=== PATIENT | female | born 1990 | race Caucasian/White ===

== ENCOUNTER 2021-11-10 20:00 | Emergency (ER) | payer OTHER, SELFPAY ==
--- NOTE | ~2021-11-10 | XR_ITS ---
EXAMINATION: XR chest 1V portable Exam Date/Time: 11/10/2021 20:45 CDT CLINICAL HISTORY: SOB with weakness Comparison: None available. RESULT: Lines, tubes, and devices: None. Lungs and pleura: Clear. Cardiomediastinal silhouette: Stable cardiomediastinal silhouette. Other: No acute osseous or upper abdominal finding. IMPRESSION: No acute cardiopulmonary process Reviewed, dictated and finalized at location K.
[2021-11-10 20:27] VITALS: BP 147/84; PULSE 98; RESP 20; TEMP 36.5; O2SAT 100
[2021-11-10 22:28] LABS: Basophils Absolute Auto 0.02 K/mm3 (0.00-0.10); Basophils Percent Auto 0.2 % (0.0-1.0); Eosinophils Absolute Auto 0.08 K/mm3 (0.02-0.50); Eosinophils Percent Auto 0.8 % (1.0-6.0); Hematocrit 34.9 % (35.0-49.0); Immature Granulocyte Absolute 0.04 K/mm3 (0.00-0.00); Immature Granulocyte Percent A 0.4 % (0.0-0.0); Lymphocytes Absolute Auto 1.78 K/mm3 (1.10-4.50); Lymphocytes Percent Auto 17.8 % (18.0-42.0); Mean Corpuscular HGB Conc 34.4 g/dL (32.0-36.0); Mean Corpuscular Hemoglobin 32.7 pg (27.0-31.0); Mean Corpuscular Volume 95.1 fL (78.0-102.0); Mean Platelet Volume 9.6 fl (9.2-11.8); Monocytes Absolute Auto 0.38 K/mm3 (0.10-0.90); Monocytes Percent Auto 3.8 % (2.0-11.0); Neutrophils Absolute Auto 7.7 K/mm3 (1.7-7.2); Platelet Count Result 304 K/mm3 (150-420); Red Blood Count 3.67 M/mm3 (4.20-5.40); Red Cell Distribution Width 11.7 % (11.6-14.4)
[2021-11-10 22:49] LABS: Lactic Acid Reflex 0.4 mmol/L (0.4-2.0)
[2021-11-10 22:55] LABS: Alanine Aminotransferase 30 U/L (14-59); Albumin Level 3.6 g/dL (3.4-5.0); Alkaline Phosphatase 46 U/L (46-116); Anion Gap 10 mmol/L (8-16); Aspartate Amino Transferase 12 U/L (15-37); Bilirubin,Total 0.3 mg/dL (0.00-1.00); Blood Urea Nitrogen 9 mg/dL (7-18); Calcium 8.5 mg/dL (8.5-10.1); Carbon Dioxide 25 mmol/L (21-32); Chloride 105 mmol/L (98-108); Estimated CRCL calculation 152 ml/min; Estimated Glomerular Filt Rate > 60; Glucose 110 mg/dL (70-99); Osmolality Calculated 289 mOsm/kg (285-295); Potassium 3.4 mmol/L (3.5-5.1); Sodium 140 mmol/L (136-145); Thyroid Stimulating Hormone 0.59 uIU/mL (0.36-3.74); Total Protein 6.6 g/dL (6.4-8.2)
[2021-11-10 23:04] LABS: Influenza A QL RT-PCR Negative (Negative); Influenza B QL RT-PCR Negative (Negative)
[2021-11-10 23:15] LABS: Add Urine Microscopic? NO; Appearance Urine Clear (Clear); Bilirubin Urine Negative (Negative); Blood Urine Negative (Negative); Color Urine Light Yellow (Yellow); Glucose Urine UA Negative (Negative); Ketones Urine Negative (Negative); Leukocyte Esterase Ur Negative (Negative); Nitrate Urine Negative (Negative); Protein Urine Negative (Negative); Urobilinogen Urine 0.2 mg/dL (0.2-1.0)
--- NOTE | 2021-11-10 23:18 | ED.GENADULT ---
HPI - General Adult General Chief complaint: Unspecified Stated complaint: shaking,dizzy,nausea Time Seen by Provider: 11/10/21 20:02 Source: patient and RN notes reviewed Mode of arrival: ambulatory Limitations: no limitations History of Present Illness Onset (ago): day(s) (1) Location: abdomen Severity: mild Severity scale (1-10): 3 Quality: aching and dull Pain Consistency: constant Relieving factors: none Exacerbating factors: none Associated symptoms: nausea/vomiting Related Data Home Medications Medication Instructions Recorded Confirmed budesonide-formoterol [Symbicort] See Rx Instructions .ROUTE .COMPLEX 11/10/21 11/10/21 buspirone 10 mg PO DAILY 11/10/21 11/10/21 cyclobenzaprine 5 mg PO DAILY PRN 11/10/21 11/10/21 levothyroxine See Rx Instructions .ROUTE .COMPLEX 11/10/21 11/10/21 lorazepam See Rx Instructions .ROUTE .COMPLEX 11/10/21 11/10/21 Allergies Allergy/AdvReac Type Severity Reaction Status Date / Time No Known Drug Allergies Allergy Unknown Other Verified 06/22/18 13:23 Review of Systems Review of Systems: All systems reviewed & are unremarkable except as noted in HPI and below [facility] Past Medical History Medical History Viral syndrome Exam Const: General: cooperative, no acute distress and well developed Orientation/consciousness: patient oriented x3 Limitations: no limitations HENMT: Head: normal to inspection, normocephalic and atraumatic Ears: hearing grossly normal bilaterally, external ears normal, TM's normal bilaterally and EAC's normal General nose exam: Normal external nose present and Normal nares present Face and sinus: normal facial exam Mouth: Yes Normal oral and palatal mucosa present, Yes oropharynx normal and Yes moist mucous membranes Eyes: General: appearance normal, both eyes and all related structures Visual Johnson: normal visual johnson by confrontation Periorbital: periorbital findings normal Eyelids: eyelids normal Conjunctivae: conjunctivae normal Sclera: sclerae normal Cornea: corneas normal Pupils: Equal, round and reactive pupils present and Pupil accommodation reflex normal EOM: EOMs intact bilaterally Neck: Neck: normal visual inspection Lymphatic: no lymphadenopathy noted Chest: Chest palpation & inspection: normal inspection of the chest Resp: Effort & Inspection: normal respiratory effort Auscultation: clear to auscultation bilaterally Cardio: Jugular venous distension: no JVD Rate: regular rate Rhythm: regular rhythm Peripheral pulses: Peripheral pulses 2+ throughout GI: GI Palp: No abdominal tenderness Auscultation: normal bowel sounds : General: Yes bladder normal to inspection Back/Spine/Pelvis: Back: no CVA tenderness Cervical Spine: cervical ROM normal Thoracic/Lumbar Spine: thoraco-lumbar ROM normal Skin: General skin exam: normal color Neuro: General: oriented to person, oriented to place, oriented to time, patient oriented x3, no meningeal signs, no focal motor deficits and CN's II-XI intact bilaterally Cranial nerves: Yes CN's II-XII intact bilaterally Cognition (Neuro): normal cognition Speech: normal speech Gait exam (Neuro): Normal gait present Motor exam (neuro): 5/5 motor strength present throughout Extrem: General: normal to inspection, full ROM, capillary refill normal, no pedal edema and no calf tenderness Psych: Appearance: grossly normal and well kempt Mental Status: mental status grossly normal Speech and movement: Normal speech and movement present Affect: normal affect Attitude: cooperative Thought process: Normal thought process present Thought content: Yes Normal thought content present Judgement: Good judgement present (Psych) Course Course Emergency Course: Pt was stable in the ED. no acute GI loss Reevaluation(s) Reevaluation #1: VSS Date: 11/10/21 Time: 21:00 Vital Signs Vital signs: Vital Signs Temperature 36.5 C 11/10/21 20:27
[2021-11-10 23:20] LABS: SPREG INTERNAL CONTROL Positive; Serum Qual hCG Negative
--- NOTE | 2021-11-10 23:41 | PC.NURSE ---
2039 Code arrived in ER, IV meds not started. 2244 offered to give meds, patient declined, approved, patient stable
[2021-11-10 23:42] VITALS: BP 120/70; PULSE 65; RESP 16; TEMP 36.4; O2SAT 100
== END 2021-11-10 23:45 | disposition home or self-care (01) ==
PROVIDERS: Emergency Provider Emergency Medicine; PCP Physician Assistant
DX: B34.9 Viral infection, unspecified (principal)
CPT/HCPCS: 36415; 71045; 80053; 81003; 83605; 84443; 84703; 85025; 87502; 99283

== ENCOUNTER 2022-02-12 11:37 | Emergency (ER) | payer OTHER, SELFPAY ==
[2022-02-12] VITALS (10 sets, daily range): BP systolic 120–142; BP diastolic 68–77; PULSE 81–126; RESP 7–19; TEMP 36.6; O2SAT 98–100
--- NOTE | ~2022-02-12 | XR_ITS ---
EXAMINATION: XR chest 2V 02/12/2022 12:38 INDICATION: Chest palpitations PROCEDURE: 2 view chest COMPARISON: 11/10/2021 FINDINGS: The lungs are clear. The cardiomediastinal silhouette is within normal limits. There are no pleural effusions. There is no pneumothorax suspected. IMPRESSION: 1: NO ACUTE CARDIOPULMONARY DISEASE. Reviewed, dictated and finalized at location A.
--- NOTE | 2022-02-12 11:39 | ECG_ITS ---
Measurements Intervals [place] Rate: 92 P: 77 AR: 141 QRS: 67 QRSD: 87 T: 33 QT: 325 QTc: 403 Interpretive Statements SINUS RHYTHM NORMAL ECG Electronically Signed On 02-12-2022 16:16:35 CDT by Archie Johnson D.O.
[2022-02-12 11:57] LABS: Basophils Percent Auto 0.6 % (0.2-1.2); Eosinophils Absolute Auto 0.1 K/mm3 (0-0.3); Eosinophils Percent Auto 2.5 % (0-4.4); Hematocrit 40.1 % (37.0-47.0); Hemoglobin 13.4 g/dL (12.0-15.0); Immature Granulocyte Absolute 0.01 K/mm3 (0.00-0.031); Immature Granulocyte Percent A 0.2 % (0-0.5); Lymphocytes Absolute Auto 1.66 K/mm3 (0.9-3.2); Lymphocytes Percent Auto 34.2 % (18.3-44.2); Mean Corpuscular HGB Conc 33.4 g/dl (32-36); Mean Corpuscular Hemoglobin 31.8 pg (26-34); Monocytes Absolute Auto 0.2 K/mm3 (0.1-0.6); Monocytes Percent Auto 4.9 % (2.6-8.5); Neutrophils Absolute Auto 2.8 K/mm3 (1.3-6.7); Neutrophils Percent Auto 57.6 % (45.5-73.1); Platelet Count Result 295 k/mm3 (150-375); Red Blood Count 4.22 M/mm3 (4.2-5.4); White Blood Count 4.9 K/mm3 (4.5-10.0)
[2022-02-12 12:05] LABS: Alanine Aminotransferase 23 U/L (6-35); Albumin Level 4.7 g/dL (3.5-5.1); Alkaline Phosphatase 48 U/L (38-126); Anion Gap 8 mmol/L (8-16); Aspartate Amino Transferase 31 U/L (14-36); Bilirubin,Total 1.2 mg/dL (0.2-1.3); Blood Urea Nitrogen 7 mg/dL (7-17); Carbon Dioxide 21 mmol/L (22-30); Chloride 106 mmol/L (98-107); Estimated CRCL calculation 181 ml/min; Estimated Glomerular Filt Rate > 60; Glucose 101 mg/dL (65-110); Lipase 57 U/L (23-300); Potassium 4.2 mmol/L (3.4-5.0); Sodium 135 mmol/L (137-145)
[2022-02-12 12:07] LABS: INR 1.1; Prothrombin Time 13.7 Seconds (11.1-14.7)
[2022-02-12 12:08] LABS: Partial Thromboplastin Time 23.7 SECONDS (22.3-36.8)
[2022-02-12 12:16] LABS: Troponin I < 0.012 ng/mL (0.000-0.034)
[2022-02-12] MEDS: ASPIRIN 81 MG CHEWABLE TABLET 324 MG PO (13:02)
--- NOTE | 2022-02-12 13:10 | ED.ARRPALP ---
HPI - Arrhythmia/Palpitations General Chief Complaint: Arrhythmia/Palpitations Stated Complaint: palpations Time Seen by Provider: 02/12/22 13:09 Source: patient Mode of arrival: ambulatory Limitations: no limitations History of Present Illness HPI narrative: 32 years old white female drove herself to the emergency room because of palpitation, panic attack, shaking, jittery feeling, hyperventilation, stomach upset, lightheadedness and chest pain been off and on for the last 48 hours. Patient used to be on Celexa 20 mg once a day, increased up to 40 mg 2 weeks ago, patient also on Ativan as needed, history of hypothyroidism asthma. She denies any fever, chills, nausea, vomiting. Currently patient feeling calm and denying any symptoms. Related Data Home Medications Medication Instructions Recorded Confirmed budesonide-formoterol HFA 160 See Rx Instructions .Route .COMPLEX 11/10/21 11/10/21 mcg-4.5 mcg/actuation aerosol inhaler (Symbicort) levothyroxine 125 mcg tablet See Rx Instructions .Route .COMPLEX 11/10/21 11/10/21 lorazepam 0.5 mg tablet See Rx Instructions .Route .COMPLEX 11/10/21 11/10/21 citalopram 40 mg tablet mg 02/12/22 Allergies Allergy/AdvReac Type Severity Reaction Status Date / Time No Known Drug Allergies Allergy Unknown Other Verified 02/12/22 11:46 Review of Systems Review of Systems: All systems reviewed & are unremarkable except as noted in HPI and below [facility] Past Medical History Medical History Viral syndrome Exam Narrative: General appearance: Well-developed, well-nourished Skin: Normal color Head: Normocephalic, nontraumatic Eyes: Clear conjunctiva ENT: Oropharynx normal, ears normal, nose normal Neck: Supple, nontender Chest and respiratory: Airway patent, no respiratory distress, no accessory muscle use Heart: Regular rate/rhythm Abdomen: Soft, nontender, no organomegaly, quiet bowel sounds Vascular: Normal peripheral pulses, normal capillary refill. Musculoskeletal: Normal range of motion, nontender back Neurologic: Alert and oriented ?3, HOUSE WORK[employer] is normal as tested, no gross motor deficit Course Course Emergency Course: Anxiety-like symptoms is my concern. 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 Vital Signs Vital signs: Vital Signs Temperature 36.6 C 02/12/22 11:43 Pulse Rate 112 H 02/12/22 11:43 Respiratory Rate 19 02/12/22 11:43 Blood Pressure 142/76 H 02/12/22 11:43 Pulse Oximetry 100 02/12/22 11:43 Oxygen Delivery Room Air 02/12/22 11:43 Temperature 36.6 C 02/12/22 11:43 Pulse Rate 112 H 02/12/22 11:43 Respiratory Rate 19 02/12/22 11:43 Blood Pressure 142/76 H 02/12/22 11:43 Pulse Oximetry 100 02/12/22 11:43 Oxygen Delivery Room Air 02/12/22 11:43 MDM - Arrhythmia/Palpitations Differential Diagnosis Differential diagnosis: Likely palpitations and anxiety Lab Data Result diagrams: 02/12/22 11:48 02/12/22 11:48 Labs: Lab Results 02/12/22 02/12/22 02/12/22 Range/Units 11:48 11:48 11:48 WBC 4.9 (4.5-10.0) K/mm3 RBC 4.22 (4.2-5.4) M/mm3 Hgb 13.4 (12.0-15.0) g/dL Hct 40.1 (37.0-47.0) % MCV 95.0 (80-100) fl MCH 31.8 (26-34) pg MCHC 33.4 (32-36) g/dl RDW 12.0 (11.5-14.5) % Plt Count 295 (150-375) k/mm3 MPV 10.0 (7.4-10.4) fl Immature Gran % (Auto) 0.2 (0-0.5) % Neut % (Auto) 57.6 (45.5-73.1) % Lymph % (Auto) 34.2 (18.3-44.2) % [place] % (Auto) 4.9 (2.6-8.5) % Eos % (Auto) 2.5 (0-4.4) % Baso % (Auto) 0.6 (0.2-1.
[2022-02-12 13:58] LABS: Thyroid Stimulating Hormone 0.592 uIU/mL (0.465-4.680)
[2022-02-12 15:08] LABS: Troponin I < 0.012 ng/mL (0.000-0.034)
== END 2022-02-12 15:23 | disposition home or self-care (01) ==
PROVIDERS: General Practice; Emergency Provider Emergency Medicine; PCP Physician Assistant
DX: R00.2 Palpitations (principal); F41.9 Anxiety disorder, unspecified; E03.9 Hypothyroidism, unspecified; J45.909 Unspecified asthma, uncomplicated
CPT/HCPCS: 36415; 71046; 80053; 83690; 84443; 84484; 85025; 85610; 85730; 93005; 99284; A9270

== ENCOUNTER 2023-12-16 18:39 | Observation (INO) | payer OTHER, SELFPAY ==
[2023-12-16] VITALS (18 sets, daily range): BP systolic 111–115; BP diastolic 54–67; PULSE 68–115; O2SAT 96–100; BMI 41.1
--- NOTE | 2023-12-16 18:53 | OBADM ---
This patient, Martha Miner, admitted to the OB room OB Post 117 for observation. Patient/family oriented to hospital policies and general routines including ID bracelet, bed and alarms, visiting hours, pain management, procedures, bathroom and other care routines, personal items, smoking policy, room service/diet, and visiting hours. Patient/Family are encouraged to report perceived risks to care and to ask questions if they do not understand what they are told or what they should do.
[2023-12-16 19:17] LABS: Basophils Percent Auto 0.1 % (0.2-1.2); Eosinophils Absolute Auto 0.1 K/mm3 (0-0.3); Eosinophils Percent Auto 0.8 % (0-4.4); Hematocrit 34.8 % (37.0-47.0); Hemoglobin 12.1 g/dL (12.0-15.0); Immature Granulocyte Absolute 0.05 K/mm3 (0.00-0.031); Immature Granulocyte Percent A 0.5 % (0-0.5); Lymphocytes Absolute Auto 2.01 K/mm3 (0.9-3.2); Lymphocytes Percent Auto 21.3 % (18.3-44.2); Mean Corpuscular HGB Conc 34.8 g/dl (32-36); Mean Corpuscular Hemoglobin 32.7 pg (26-34); Mean Corpuscular Volume 94.1 fl (80-100); Mean Platelet Volume 10.5 fl (7.4-10.4); Monocytes Absolute Auto 0.5 K/mm3 (0.1-0.6); Monocytes Percent Auto 4.8 % (2.6-8.5); Neutrophils Absolute Auto 6.8 K/mm3 (1.3-6.7); Neutrophils Percent Auto 72.5 % (45.5-73.1); Platelet Count Result 225 k/mm3 (150-375); Red Cell Distribution Width 12.6 % (11.5-14.5); White Blood Count 9.4 K/mm3 (4.5-10.0)
[2023-12-16 19:20] LABS: Appearance Urine Clear (Clear); Bilirubin Urine Negative (Negative); Blood Urine Negative (Negative); Color Urine Yellow (Yellow); Glucose Urine UA Negative (Negative); Ketones Urine Negative (Negative); Leukocyte Esterase Ur Negative LEU/UL (Negative); Nitrate Urine Negative (Negative); Protein Urine Negative (Negative); Specific Grav Ur 1.005 (1.001-1.035)
[2023-12-16 19:21] LABS: Add Urine Microscopic? NO
[2023-12-16 19:26] LABS: Alanine Aminotransferase 14 U/L (6-35); Albumin Level 3.5 g/dL (3.5-5.1); Alkaline Phosphatase 75 U/L (38-126); Anion Gap 6 mmol/L (4-12); Aspartate Amino Transferase 20 U/L (14-36); Bilirubin,Total 0.5 mg/dL (0.2-1.3); Blood Urea Nitrogen 3 mg/dL (7-17); Calcium 8.7 mg/dL (8.4-10.2); Carbon Dioxide 19 mmol/L (22-30); Chloride 108 mmol/L (98-107); Estimated CRCL calculation 243 ml/min; Estimated Glomerular Filt Rate > 60; Glucose 90 mg/dL (65-110); Potassium 3.6 mmol/L (3.4-5.0); Sodium 133 mmol/L (137-145); Uric Acid 2.5 mg/dL (2.5-7.5)
[2023-12-16] MEDS: ACETAMINOPHEN/BUTALBITAL/CAFFEINE 325-50-40 MG TABLET (FIORICET) 1 TAB PO (19:58)
[2023-12-16] MEDS: LACTATED RINGERS 500 ML 999 ML IV CONT (20:10)
[2023-12-16] MEDS: TERBUTALINE SULFATE 1 MG/ML VIAL 0.25 MG SUB-Q (21:45)
--- NOTE | 2024-01-12 17:53 | PM.OBTRLD ---
OB - Triage/Final Diagnosis Visit Information Comments/Additional reasons for admission: I have assessed the risk for this patient, Martha Miner, and determined that she would benefit from observation care. Evaluation Laboratory results: Laboratory Tests 12/16/23 19:08 WBC 9.4 RBC 3.70 L Hgb 12.1 Hct 34.8 L MCV 94.1 MCH 32.7 MCHC 34.8 RDW 12.6 Plt Count 225 MPV 10.5 H Immature Gran % (Auto) 0.5 Neut % (Auto) 72.5 Lymph % (Auto) 21.3 [place] % (Auto) 4.8 Eos % (Auto) 0.8 Baso % (Auto) 0.1 L Lymph # (Auto) 2.01 [place] # (Auto) 0.5 Eos # (Auto) 0.1 Baso # (Auto) 0.0 Abs Immat Gran (auto) 0.05 H Absolute Neuts (auto) 6.8 H Absolute Nucleated RBC 0.000 Nucleated RBC % 0.0 Sodium 133 L Potassium 3.6 Chloride 108 H Carbon Dioxide 19 L Anion Gap 6 BUN 3 L Creatinine 0.40 L Estim Creat Clear Calc 243 Estimated GFR > 60 Glucose 90 Uric Acid 2.5 Calcium 8.7 Total Bilirubin 0.5 AST 20 ALT 14 Alkaline Phosphatase 75 Total Protein 7.0 Albumin 3.5 Urine Color Yellow Urine Appearance Clear Urine pH 7.0 Ur Specific [place] 1.005 Urine Protein Negative Urine Glucose (UA) Negative Urine Ketones Negative Ur Blood (Man) Negative Urine Nitrate Negative Urine Bilirubin Negative Urine Urobilinogen 1.0 Ur Leukocyte Esterase Negative Leukocyte Esterase Rfl Negative Final Diagnosis (1) Headache: Code(s): R51.9 - Headache, unspecified Status: Acute
== END 2023-12-16 22:50 ==
PROVIDERS: Admitting Provider Obstetrics & Gynecology; PCP Physician Assistant; Visit Provider Obstetrics & Gynecology
DX: O26.893 Other specified pregnancy related conditions, third trimester (principal); R51.9 Headache, unspecified; Z3A.31 31 weeks gestation of pregnancy
CPT/HCPCS: 36415; 80053; 81003; 84550; 85025; 96360; 96372; A9270; G0378; G0379; J3105; J7120

== ENCOUNTER 2024-01-22 16:00 | Observation (INO) | payer OTHER, SELFPAY ==
[2024-01-22] VITALS (22 sets, daily range): BP systolic 118–124; BP diastolic 59–67; PULSE 71–92; TEMP 37.1; O2SAT 97–100; BMI 42.0
--- NOTE | ~2024-01-22 | XR_ITS ---
EXAMINATION: XR chest 2V DATE: 01/22/2024 17:52 INDICATION: Shortness of breath. TECHNIQUE: Frontal and lateral views of the chest were obtained. COMPARISON: Chest 2 views 02/12/2022 FINDINGS: There is no pneumonia, pleural effusion, or pneumothorax. The heart size is normal. IMPRESSION: 1. No acute cardiopulmonary disease. Reviewed, dictated and finalized at location E.
--- NOTE | 2024-01-22 16:24 | OBADM ---
This patient, Martha Miner, admitted to the OB room 117 for observation for headache, fatigue, and shortness of breath. Patient/family oriented to hospital policies and general routines including ID bracelet, bed and alarms, visiting hours, pain management, procedures, bathroom and other care routines, personal items, smoking policy, room service/diet, and visiting hours. Patient/Family are encouraged to report perceived risks to care and to ask questions if they do not understand what they are told or what they should do.
[2024-01-22 17:57] LABS: Basophils Percent Auto 0.2 % (0.2-1.2); Eosinophils Absolute Auto 0.1 K/mm3 (0-0.3); Eosinophils Percent Auto 0.9 % (0-4.4); Hematocrit 35.4 % (37.0-47.0); Hemoglobin 12.2 g/dL (12.0-15.0); Immature Granulocyte Absolute 0.07 K/mm3 (0.00-0.031); Immature Granulocyte Percent A 0.8 % (0-0.5); Lymphocytes Absolute Auto 1.64 K/mm3 (0.9-3.2); Lymphocytes Percent Auto 19.1 % (18.3-44.2); Mean Corpuscular HGB Conc 34.5 g/dl (32-36); Mean Corpuscular Hemoglobin 32.8 pg (26-34); Mean Corpuscular Volume 95.2 fl (80-100); Mean Platelet Volume 11.3 fl (7.4-10.4); Monocytes Absolute Auto 0.5 K/mm3 (0.1-0.6); Monocytes Percent Auto 6.2 % (2.6-8.5); Neutrophils Absolute Auto 6.2 K/mm3 (1.3-6.7); Neutrophils Percent Auto 72.8 % (45.5-73.1); Platelet Count Result 214 k/mm3 (150-375); Red Blood Count 3.72 M/mm3 (4.2-5.4); White Blood Count 8.6 K/mm3 (4.5-10.0)
[2024-01-22 18:07] LABS: Alanine Aminotransferase 14 U/L (6-35); Albumin Level 3.3 g/dL (3.5-5.1); Alkaline Phosphatase 85 U/L (38-126); Anion Gap 7 mmol/L (4-12); Aspartate Amino Transferase 19 U/L (14-36); Bilirubin,Total 0.4 mg/dL (0.2-1.3); Blood Urea Nitrogen 4 mg/dL (7-17); Calcium 8.8 mg/dL (8.4-10.2); Carbon Dioxide 19 mmol/L (22-30); Chloride 110 mmol/L (98-107); Estimated CRCL calculation 202 ml/min; Estimated Glomerular Filt Rate > 60; Glucose 102 mg/dL (65-110); Potassium 3.6 mmol/L (3.4-5.0); Sodium 136 mmol/L (137-145)
[2024-01-22] MEDS: CAFFEINE 200 MG TABLET PO (18:15)
[2024-01-22] MEDS: ACETAMINOPHEN 500 MG TABLET 1000 MG PO (18:15)
[2024-01-22 18:24] LABS: Free T4 Free Thyroxine 1.06 ng/mL (0.78-2.19)
[2024-01-22 18:38] LABS: Thyroid Stimulating Hormone 0.898 uIU/mL (0.465-4.680)
--- NOTE | 2024-01-22 18:55 | PC.NURSE ---
1847- Pt states that headache has decreased to a 2/10 and would like to go home. RN called MD and made him aware of latest lab results, results of chest xray, as well as pt stating that pain has decreased. Orders received for discharge
--- NOTE | 2024-02-13 21:05 | PM.OBTRLD ---
OB - Triage/Final Diagnosis Visit Information Comments/Additional reasons for admission: I have assessed the risk for this patient, Martha Miner, and determined that she would benefit from observation care. Evaluation Laboratory results: Laboratory Tests 01/22/24 17:41 WBC 8.6 RBC 3.72 L Hgb 12.2 Hct 35.4 L MCV 95.2 MCH 32.8 MCHC 34.5 RDW 13.0 Plt Count 214 MPV 11.3 H Immature Gran % (Auto) 0.8 H Neut % (Auto) 72.8 Lymph % (Auto) 19.1 [place] % (Auto) 6.2 Eos % (Auto) 0.9 Baso % (Auto) 0.2 Lymph # (Auto) 1.64 [place] # (Auto) 0.5 Eos # (Auto) 0.1 Baso # (Auto) 0.0 Abs Immat Gran (auto) 0.07 H Absolute Neuts (auto) 6.2 Absolute Nucleated RBC 0.000 Nucleated RBC % 0.0 Sodium 136 L Potassium 3.6 Chloride 110 H Carbon Dioxide 19 L Anion Gap 7 BUN 4 L Creatinine 0.50 L Estim Creat Clear Calc 202 Estimated GFR > 60 Glucose 102 Calcium 8.8 Total Bilirubin 0.4 AST 19 ALT 14 Alkaline Phosphatase 85 Total Protein 6.0 L Albumin 3.3 L TSH 0.898 Free T4 1.06 Final Diagnosis (1) Headache: Code(s): R51.9 - Headache, unspecified Status: Acute
== END 2024-01-22 18:56 | disposition home or self-care (01) ==
PROVIDERS: Admitting Provider Obstetrics & Gynecology; PCP Physician Assistant; Visit Provider Obstetrics & Gynecology
DX: O26.819 Pregnancy related exhaustion and fatigue, unspecified trimester (principal); R51.9 Headache, unspecified; R06.02 Shortness of breath
CPT/HCPCS: 36415; 71046; 80053; 84439; 84443; 85025; A9270; G0379

== ENCOUNTER 2024-01-30 06:32 | Inpatient (IN) | payer OTHER, SELFPAY ==
[2024-01-30] VITALS (95 sets, daily range): BP systolic 84–163; BP diastolic 45–100; PULSE 57–122; TEMP 36.6–37.2; O2SAT 81–100; BMI 43.6
--- NOTE | 2024-01-30 06:32 | LDADM ---
This patient, Martha Miner, was admitted to Labor/Delivery/Recovery 109 on 01/30/24 at 06:32. Plans for labor, pain management and were discussed with patient. Patient/family oriented to hospital policies and general routines including ID bracelet, bed and alarms, visiting hours, pain management, procedures, bathroom and other care routines, personal items, smoking policy, room service/diet and guest tray routines, security routines, and visiting hours. Patient/Family are encouraged to report perceived risks to care and to ask questions if they do not understand what they are told or what they should do. See OBIX for further documentation.
[2024-01-30 07:49] LABS: Basophils Percent Auto 0.3 % (0.2-1.2); Eosinophils Absolute Auto 0.1 K/mm3 (0-0.3); Eosinophils Percent Auto 0.7 % (0-4.4); Hematocrit 36.3 % (37.0-47.0); Hemoglobin 12.2 g/dL (12.0-15.0); Immature Granulocyte Absolute 0.07 K/mm3 (0.00-0.031); Immature Granulocyte Percent A 0.7 % (0-0.5); Lymphocytes Absolute Auto 1.93 K/mm3 (0.9-3.2); Lymphocytes Percent Auto 18.9 % (18.3-44.2); Mean Corpuscular HGB Conc 33.6 g/dl (32-36); Mean Corpuscular Hemoglobin 32.4 pg (26-34); Mean Corpuscular Volume 96.5 fl (80-100); Mean Platelet Volume 11.4 fl (7.4-10.4); Monocytes Absolute Auto 0.4 K/mm3 (0.1-0.6); Neutrophils Absolute Auto 7.7 K/mm3 (1.3-6.7); Neutrophils Percent Auto 75.4 % (45.5-73.1); Platelet Count Result 194 k/mm3 (150-375); Red Blood Count 3.76 M/mm3 (4.2-5.4); White Blood Count 10.2 K/mm3 (4.5-10.0)
--- NOTE | 2024-01-30 07:49 | WPDANESEPP ---
Anes - Eval Pre Procedure Procedure: labor epidural Date/Time: 01/30/24 07:49 Surgeon: isiah Preop Diagnosis: pain during labor Pre Op Diagnosis: ctx Patient Data Age: 33 Gender: F Height: Weight: Last Vital Signs Pulse 73 01/30/24 07:46 BP 140/74 01/30/24 07:46 Allergies Allergy/AdvReac Type Severity Reaction Status Date / Time No Known Drug Allergies Allergy Unknown Other Verified 01/17/24 14:27 Home Medications Medication Instructions Recorded Confirmed Type levothyroxine 125 mcg tablet 125 mcg PO DAILY 11/10/21 01/22/24 History lorazepam 0.5 mg tablet 0.5 mg PO Q6H PRN Anxiety 11/10/21 01/22/24 History vits no.126-ferrous fum 1 tablet PO DAILY 01/17/24 01/22/24 History 28 mg iron-folic acid 800 mcg tablet (Classic ) acetaminophen 500 mg capsule 1,000 mg PO Q6H PRN Headache or 01/22/24 01/22/24 History pain calcium carbonate (Tums) 400 mg PO DAILY PRN Heartburn 01/22/24 01/22/24 History cholecalciferol (vitamin D3) 125 10,000 unit PO DAILY 01/22/24 01/22/24 History mcg (5,000 unit) tablet (Vitamin D3) metoprolol succinate 25 mg 25 mg PO DAILY 01/22/24 01/22/24 History tablet,extended release 24 hr omeprazole 20 mg capsule,delayed 20 mg PO BID PRN Reflux 01/22/24 01/22/24 History release potassium chloride 20 mEq 20 meq PO Q48H 01/22/24 01/22/24 History tablet,extended release(part/cryst) Laboratory Tests 01/30/24 07:19 WBC Pending RBC Pending Hgb Pending Hct Pending MCV Pending MCH Pending MCHC Pending RDW Pending Plt Count Pending MPV Pending Immature Gran % (Auto) Pending Neut % (Auto) Pending Lymph % (Auto) Pending [place] % (Auto) Pending Eos % (Auto) Pending Baso % (Auto) Pending Lymph # (Auto) Pending [place] # (Auto) Pending Eos # (Auto) Pending Baso # (Auto) Pending Abs Immat Gran (auto) Pending Absolute Neuts (auto) Pending Absolute Nucleated RBC Pending Nucleated RBC % Pending RPR Pending HIV 1&2 Ab/P24 Ag 4thGn Pending Patient hx anesthesia problems: none Family hx anesthesia problems: none Results Review: All pre-operative results and documents have been reviewed as part of the pre-operative evaluation. [facility] Past Medical History Medical History (Updated 01/30/24 @ 07:50 by Chen Martin CRNA) Asthma Bipolar 1 disorder IUP (intrauterine ), incidental MVP (mitral valve prolapse) Viral syndrome Family History Family History (Updated 01/17/24 @ 14:32 by Angelica Arauz RN) Grandparent Hypertension Mother Hypertension Mother Kidney carcinoma Social History Social History Substance use: never Spiritual care concerns: No Exam Day of Procedure 01/30/24 07:49
[2024-01-30] MEDS: LACTATED RINGERS 1,000 ML 125 ML IV CONT (07:56)
[2024-01-30] MEDS: AMPICILLIN 2 GM/NS 100 ML 2 GM/100 ML BAG IVPB (07:59)
[2024-01-30 08:42] LABS: HIV 1/2 Ab P24 Ag Result Negative (Negative)
--- NOTE | 2024-01-30 09:01 | PM.IMHP ---
H&P: HPI History of Present Illness Date/Time: 01/30/24 09:01 Chief Complaint: contractions Narrative: Patient is a 33 year old who presents with contractions since 2100 last night. Denies leakage of fluid or vaginal bleeding. Reports good movement. has been complicated by grand multiparity and suspected LGA, with most recent EFW 89%, AC 91% She also has polyhydramnios. Review of Systems Review of Systems: All systems reviewed & are unremarkable except as noted in HPI and below [facility] Past Medical History Medical History Asthma Bipolar 1 disorder IUP (intrauterine ), incidental MVP (mitral valve prolapse) Viral syndrome Family History Family History Grandparent Hypertension Mother Hypertension Mother Kidney carcinoma Social History Social History Smoking status: Never smoker Substance use: never Spiritual care concerns: No Meds Home Medications and Allergies Home Medications Medication Instructions Recorded Confirmed Type levothyroxine 125 mcg tablet 125 mcg PO DAILY 11/10/21 01/22/24 History lorazepam 0.5 mg tablet 0.5 mg PO Q6H PRN Anxiety 11/10/21 01/30/24 History vits no.126-ferrous fum 1 tablet PO DAILY 01/17/24 01/22/24 History 28 mg iron-folic acid 800 mcg tablet (Classic ) acetaminophen 500 mg capsule 1,000 mg PO Q6H PRN Headache or 01/22/24 01/30/24 History pain calcium carbonate (Tums) 400 mg PO DAILY PRN Heartburn 01/22/24 01/30/24 History cholecalciferol (vitamin D3) 125 10,000 unit PO DAILY 01/22/24 01/30/24 History mcg (5,000 unit) tablet (Vitamin D3) metoprolol succinate 25 mg 25 mg PO DAILY 01/22/24 01/30/24 History tablet,extended release 24 hr omeprazole 20 mg capsule,delayed 20 mg PO BID PRN Reflux 01/22/24 01/30/24 History release potassium chloride 20 mEq 20 meq PO Q48H 01/22/24 01/30/24 History tablet,extended release(part/cryst) Allergies Allergy/AdvReac Type Severity Reaction Status Date / Time No Known Drug Allergies Allergy Unknown Other Verified 01/17/24 14:27 Vital Signs Vital Signs - 24 hr 01/30/24 07:16 01/30/24 07:31 01/30/24 07:46 Pulse Rate 64 86 73 Blood Pressure 129/65 141/74 H 140/74 01/30/24 08:01 01/30/24 08:16 01/30/24 08:31 Pulse Rate 84 73 80 Blood Pressure 122/69 127/70 131/64 01/30/24 08:47 Pulse Rate 80 Blood Pressure 135/79 Exam Const: General: comfortable and no acute distress HENMT: Mouth: Yes moist mucous membranes Resp: Effort & Inspection: normal respiratory effort Cardio: Rate: regular rate Rhythm: regular rhythm : Other: SVE 4.5/60/-3 Skin: General skin exam: normal color Extrem: General: normal to inspection Psych: Mental Status: mental status grossly normal H&P: Results Labs Labs: Short CBC 01/30/24 Range/Units 07:19 WBC 10.2 H (4.5-10.0) K/mm3 Hgb 12.2 (12.0-15.0) g/dL Hct 36.3 L (37.0-47.0) % Plt Count 194 (150-375) k/mm3 Assessment and Plan Assessment and plan (1) Normal first stage of labor: Status: Acute Assessment and Plan: - contractions since 2099 last night - FHR category I, toco q2-5min - SVE 3.5cm > 4.5cm - continue expectant management - ampicillin started for GBS prophylaxis
[2024-01-30] MEDS: AMPICILLIN 1 GM/NS 50 ML 1 GM/50 ML BAG IVPB ×3 (12:10→20:05)
--- NOTE | 2024-01-30 12:43 | PM.OBPNLAB ---
Pain Control Date/time seen: 01/30/24 12:43 Pelvic Exam Dilation (cm): 6 Effacement (%): 60 station: -3 Amniotic membrane status: Ruptured Comments: Clear fluid returned on AROM Contractions Monitor mode: External Contraction frequency: 4 Contraction pattern: Regular Status status: Category l Assessment and Plan Assessment: active labor Plan: continuous present management
[2024-01-30] MEDS: OXYTOCIN 30 UNITS/NS 500 ML 30 UNITS/500 ML BAG IV CONT (15:21)
[2024-01-30] MEDS: FAMOTIDINE 20 MG/2 ML VIAL (20:09)
[2024-01-30] MEDS: OXYTOCIN 30 UNITS/NS 500 ML 30 UNITS/500 ML BAG 999 UNITS IV CONT (20:47)
--- NOTE | 2024-01-30 21:04 | P.PCNOB_ITS ---
OB - Vaginal Delivery Note Procedure Delivery date: 01/30/24 Events: Polyhydramnios and Positive Group B Strep (GBS) Delivery augmentation: Rupture of Membranes and Pitocin Delivery monitor: External FHT and External Uterine Route of delivery: Episiotomy description: None Laceration Description: None Specimen: No Anesthesia type: Epidural Disposition: Floor Complications: No immediate complications Narrative: See H&P and notes for details on patient's admission and labor. She progressed to complete cervical dilation and at the appropriate time began pushing. With adequate expulsive efforts by the mother, the baby's head was delivered without difficulty. Nuchal cord was present x1 and was delivered through. The baby's left shoulder was anterior and delivered under the pubic symphysis without difficulty. The posterior shoulder and the rest of the baby delivered without difficulty. The umbilical cord was doubly clamped and cut after 60 seconds of delayed cord clamping. Care of the infant was then assumed by the nursing staff. [place] Baby Date of : 01/30/24 Weeks of gestation at delivery: 38 Infant gender: Male presentation: vertex position: Left Occiput Anterior Placenta delivery description: Expressed Cord Vessel Description: 3 Vessels, Nuchal Cord and Delayed Cord Clamping score one minute: 9 score five minutes: 9
[2024-01-30] MEDS: IBUPROFEN 600 MG TABLET PO (21:34)
[2024-01-30] MEDS: OXYTOCIN 30 UNITS/NS 500 ML 30 UNITS/500 ML BAG 125 UNITS IV CONT (21:35)
[2024-01-30] MEDS: ACETAMINOPHEN 325 MG TABLET 650 MG PO (23:06)
[2024-01-31] VITALS: BP 114/67; PULSE 55; RESP 18; TEMP 36.6; O2SAT 100
[2024-01-31] MEDS: IBUPROFEN 600 MG TABLET PO ×4 (03:18→22:59)
[2024-01-31] MEDS: ONDANSETRON INJ 4 MG/2 ML VIAL IV PUSH (03:58)
[2024-01-31] MEDS: COSYNTROPIN 0.25 MG/ML VIAL 1 MG IV PUSH (04:02)
[2024-01-31] MEDS: ACETAMINOPHEN/BUTALBITAL/CAFFEINE 325-50-40 MG TABLET (FIORICET) 1 TAB PO ×3 (04:07→18:52)
[2024-01-31] MEDS: MEPERIDINE HCL INJ (*CRX) 50 MG/ML AMPUL 25 MG IV PUSH (04:09)
[2024-01-31] MEDS: LACTATED RINGERS 1,000 ML 500 ML IV CONT (04:19)
[2024-01-31 05:02] LABS: Hematocrit 32.5 % (37.0-47.0)
--- NOTE | 2024-01-31 05:15 | OBPPTRN ---
Patient transferred to post room #286 via (wheelchair). Support person present. Oriented to unit, room, information board, rooming in, admission packet and security measures. Patient verbalizes understanding.
[2024-01-31 05:27] VITALS: BP 110/76; PULSE 70; RESP 15; TEMP 36.6; O2SAT 98
[2024-01-31] MEDS: LEVOTHYROXINE SODIUM 125 MCG TABLET PO (07:20)
[2024-01-31 07:45] VITALS: BP 92/57; PULSE 56; RESP 16; TEMP 36.5; O2SAT 97
[2024-01-31] MEDS: MULTIVIT/MIN/PREN/FOL AC/IRON TABLET 1 TAB PO (08:54)
[2024-01-31] MEDS: ACETAMINOPHEN 325 MG TABLET 650 MG PO ×2 (09:59→17:48)
--- NOTE | 2024-01-31 12:17 | PC.NURSE ---
0930. Mother verbalizes she is able to independently latch infant with appropriate positioning and alignment on the left side. She described having some difficulties on the L side, and can only do side lying position at the time because of her spinal CURIEL. She denies any nipple discomfort on the R with some discomfort on the L, and is responsively . is currently meeting outcomes for weight, output, jaundice, blood sugar and feeding frequencies of 8-12 times in 24 hours. Mother declines any additional assistance or education at this time, she is dealing with a spinal CURIEL and would like to call out later today during a feed if baby is struggling on the L side for assistance. Mother voiced understanding of information shared along with the mom/baby guide for an additional resource. Reported to the Primary RN.
--- NOTE | 2024-01-31 12:27 | PM.OBPNVD ---
OB - PN: Subj Subjective Date/time seen: 01/31/24 12:27 Interval history: PPD#1 Doing well, pain well controlled Emptying bladder without issue Headache this morning, improved with laying down, possible spinal headache No nausea or vomiting OB - PN: Obj Data Labs 01/31/24 03:28 Labs: Laboratory Results - last 24 hr 01/31/24 03:28 Hgb 11.0 L Hct 32.5 L Blood Type A Negative Antibody Screen TNP Screen Negative Baby's Blood Type A pos Baby's MARGE Positive Doses of RhIg Required 1 OB - PN A/P Assessment and Plan (1) (spontaneous vaginal delivery): Code(s): O80 - Encounter for full-term uncomplicated delivery Status: Acute (2) Headache: Code(s): R51.9 - Headache, unspecified Status: Acute Assessment and Plan: - anesthesia to evaluate if persistent today for possible blood patch Plan day: 1 Plan: routine care Time Spent With Patient Time: Total time spent is greater than 50% in coordination of care (as documented) at patient's floor/unit and/or counseling patient: Review of Systems Review of Systems: All systems reviewed & are unremarkable except as noted in HPI and below Exam Const: General: comfortable and no acute distress Orientation/consciousness: patient oriented x3 Other: laying flat in bed Resp: Effort & Inspection: normal respiratory effort
[2024-01-31] MEDS: RHO(D) IMMUNE GLOBULIN 300 MCG/2 ML SYRINGE IM (14:22)
--- NOTE | 2024-01-31 14:45 | WPDANLDPN2 ---
Anes-Prog Note L&D Date/Time: 01/31/24 14:45 Comfortable throughout: labor and delivery Neuraxial method: epidural Epidural/Spinal procedure site: clean & non-tender Neuro status: Neuro function grossly intact. Cardiovascular status: normal Respiratory status: normal Airway patency: baseline Mental status: baseline Post-Op hydration status: normal Vital Signs: Last Vital Signs Temp 36.5 C 01/31/24 07:45 Pulse 56 L 01/31/24 07:45 Resp 16 01/31/24 07:45 BP 92/57 L 01/31/24 07:45 Pulse Ox 97 01/31/24 07:45 O2 Del Method Room Air 01/31/24 07:45 Pain score (VAS): 410 I/O: Intake & Output 01/30/24 01/31/24 01/31/24 23:59 07:59 15:59 Intake Total 50 240 Balance 50 240 Post-procedural complaints: other (Patient laying supine with lights off. Describes headache that worsens when sitting up, states that the forcet improved symptoms but still complains of pain radiating to neck and back. Discussed conservative management with increased fluid intake, caffeine and round the clock pain medications. ) Patient feedback: Patient satisfied with anesthetic care. Other findings: Will reassess patient at 24 hour michael and proceed as needed
[2024-01-31 15:46] VITALS: BP 109/53; PULSE 56; RESP 16; TEMP 36.9; O2SAT 99
[2024-01-31] MEDS: DOCUSATE SODIUM 100 MG CAPSULE PO (17:48)
[2024-01-31 18:50] VITALS: PULSE 60
[2024-01-31] MEDS: METOPROLOL SUCCINATE EXT REL 25 MG TABCR PO (18:50)
[2024-01-31 19:09] LABS: Rapid Plasma Reagin Non-Reactive (NonReactive)
[2024-01-31 20:00] VITALS: BP 112/65; PULSE 65; RESP 17; TEMP 36.4; O2SAT 100
[2024-02-01] MEDS: ACETAMINOPHEN/BUTALBITAL/CAFFEINE 325-50-40 MG TABLET (FIORICET) 1 TAB PO ×2 (01:45→10:49)
[2024-02-01] MEDS: ACETAMINOPHEN 325 MG TABLET 650 MG PO (03:34)
--- NOTE | 2024-02-01 05:51 | WPDANESEBPP ---
Anes - Epidural Blood Patch PN Date/Time: 02/01/24 05:51 Consent: I have discussed with the patient/family/POA, the rationale of a lumbar epidural autologous blood patch for the treatment of post-dural puncture headache (spinal headache), including associated potential risks, benefits, complications and side effects. I have also discussed more conservative treatment options such as intravenous hydration, caffeine and non-prescription analgesics. The patient/family/POA, understand(s) and wish(es) to proceed with epidural autologous blood patch as treatment for the patient's post-dural puncture headache. Time-Out: A pre-procedural Time-Out was completed immediately before starting the procedure and confirmed: Patient Identification, Site, Procedure, Patient Position and the Availability of Requisite Equipment. Clinical Indications: Postural headache persists, worsens as pt is sitting attempting to breast feed this morning. Pt states she feels she is unable to go home and take care of her baby with this headache. The headache radiates to back of neck, shoulders and slightly into arms. Discussed continuing conservative treatment vs Epidural blood patch, Pt requests epidural blood patch. Epidural Insertion Note Patient position: sitting Needle: 18 gauge Tuohy-Schliff Technique: loss of resistance Skin anesthesia: lidocaine 1% Observations: tolerated well and other (LORT to air x1 attempt at L3-4, 18ml blood drawn sterilely from LAC and injected easily into EDS. VSS throughout. ) Complications: none and other (Pt states relief of headache. Neck pain reduced to 3-4/10. Pain in shoulders/arms resolved. )
[2024-02-01] MEDS: DOCUSATE SODIUM 100 MG CAPSULE PO (06:49)
[2024-02-01] MEDS: LEVOTHYROXINE SODIUM 125 MCG TABLET PO (06:49)
[2024-02-01 06:55] VITALS: BP 112/67; PULSE 87; RESP 20; TEMP 36.4; O2SAT 99
--- NOTE | 2024-02-01 08:51 | PM.OBPNVD ---
OB - PN: Subj Subjective Date/time seen: 02/01/24 08:51 Interval history: PPD#1 Doing better, headache improved s/p blood patch Tolerating general diet , no issues OB - PN: Obj Data Labs 01/31/24 03:28 Labs: Laboratory Results - last 24 hr 01/30/24 01/31/24 07:19 03:28 RPR Non-reactive Blood Type A Negative Antibody Screen TNP Screen Negative Baby's Blood Type A pos Baby's MARGE Positive Doses of RhIg Required 1 OB - PN A/P Assessment and Plan (1) (spontaneous vaginal delivery): Code(s): O80 - Encounter for full-term uncomplicated delivery Status: Acute (2) Headache: Code(s): R51.9 - Headache, unspecified Status: Acute Assessment and Plan: - improved s/p blood patch Plan day: 2 Plan: routine care and discharge home Time Spent With Patient Time: Total time spent is greater than 50% in coordination of care (as documented) at patient's floor/unit and/or counseling patient: Review of Systems Review of Systems: All systems reviewed & are unremarkable except as noted in HPI and below Exam Const: General: comfortable and no acute distress Orientation/consciousness: patient oriented x3 Resp: Effort & Inspection: normal respiratory effort
[2024-02-01] MEDS: IBUPROFEN 600 MG TABLET PO (08:57)
--- NOTE | 2024-02-01 08:57 | PM.OBDSVD ---
DS: Admitting Diagnosis Discharge Date 02/01/24 Admitting Diagnosis labor DS: Discharge Diagnosis Discharge Diagnosis (1) (spontaneous vaginal delivery): Code(s): O80 - Encounter for full-term uncomplicated delivery Status: Acute (2) Headache: Code(s): R51.9 - Headache, unspecified Status: Acute OB - DS: Summary OB Procedures : None OB Procedures Intrapartum: Spontaneous Vag Delivery OB Procedures: : None Peripartum Data Laceration Description: None Episiotomy description: None Time Spent with Patient Time attestation: Total time spent providing and/or coordinating discharge services: DS: Data Data Completed and Pending Labs on day of discharge: Labs from last 24 hours 01/31/24 01/30/24 03:28 07:19 RPR Non-reactive Blood Type A Negative Antibody Screen TNP Screen Negative Baby's Blood Type A pos Baby's MARGE Positive Doses of RhIg Required 1 Discharge Plan Discharge Attending physician on discharge: Chepe Gunter Discharging Clinician: Chepe Gunter Patient Disposition: Home, Self-Care Activity: may shower, as tolerated and pelvic rest Diet: as tolerated Patient Instructions: Antibiotic Form Stand Alone Forms: General Discharge Information Follow-up/Referrals: Chepe Gunter MD [Physician] - 4 Weeks Discharge Medications: New qzowqgoxmt-kyrscoplrbyam-tqrq [Fioricet] 50-300-40 mg capsule 1 cap PO Q6H PRN (Reason: pain) Qty: 10 0RF docusate sodium 100 mg Capsule 100 mg PO BID PRN (Reason: Constipation) Qty: 60 0RF ibuprofen 600 mg Tablet 600 mg PO Q6H PRN (Reason: Cramping) Qty: 30 0RF Continued lorazepam 0.5 mg tablet 0.5 mg PO Q6H PRN (Reason: Anxiety) levothyroxine 125 mcg tablet 125 mcg PO DAILY Classic 28 mg iron- 800 mcg Tablet 1 tablet PO DAILY metoprolol succinate 25 mg tablet extended release 24 hr 25 mg PO DAILY potassium chloride 20 mEq tablet,ER particles/crystals 20 meq PO Q48H calcium carbonate [Tums] 200 mg calcium (500 mg) Tablet,Chewable 400 mg PO DAILY PRN (Reason: Heartburn) omeprazole 20 mg capsule,delayed release(DR/EC) 20 mg PO BID PRN (Reason: Reflux) cholecalciferol (vitamin D3) [Vitamin D3] 125 mcg (5,000 unit) Tablet 10,000 unit PO DAILY acetaminophen 500 mg Capsule 1,000 mg PO Q6H PRN (Reason: Headache or pain) Date of admission: 01/30/24 06:32 Primary Care Provider: DraganAmish Admitting Provider: Chepe Gunter Attending physician on admission: Chepe Gunter Condition: Stable
[2024-02-01] MEDS: POLYSACCHARIDE IRON COMPLEX 150 MG CAPSULE PO (10:49)
[2024-02-01] MEDS: MULTIVIT/MIN/PREN/FOL AC/IRON TABLET 1 TAB PO (10:50)
== END 2024-02-01 11:07 | disposition home or self-care (01) | DRG 807 ==
LOC: ANHLDR 07:07 → ANHOB2 23:49
PROVIDERS: Admitting Provider Obstetrics & Gynecology; PCP Physician Assistant; Visit Provider Obstetrics & Gynecology
DX: O36.63X0 Maternal care for excessive fetal growth, third trimester, not applicable or unspecified (principal); Z37.0 Single live birth; O99.824 Streptococcus B carrier state complicating childbirth; O69.81X0 Labor and delivery complicated by cord around neck, without compression, not applicable or unspecified; O40.3XX0 Polyhydramnios, third trimester, not applicable or unspecified; Z3A.38 38 weeks gestation of pregnancy; O89.4 Spinal and epidural anesthesia-induced headache during the puerperium; G97.1 Other reaction to spinal and lumbar puncture
CPT/HCPCS: 36415; 85014; 85018; 85025; 85461; 86592; 86703; 86850; 86880; 86900; 86901; 86902; 90384; A9270; G0432; J0290; J0834; J2175; J2405; J2590; J2790; J2795; J7120

== ENCOUNTER 2024-02-02 22:17 | Observation (INO) | payer OTHER, SELFPAY ==
[2024-02-02] VITALS (46 sets, daily range): BP systolic 126–135; BP diastolic 67–74; PULSE 41–73; RESP 14; TEMP 37.3; O2SAT 95–100
--- NOTE | 2024-02-02 18:25 | PC.NURSE ---
Pt arrives to unit with elevated blood pressure at home and a headache, pt is three days .
[2024-02-02 19:11] LABS: Basophils Percent Auto 0.3 % (0.2-1.2); Eosinophils Absolute Auto 0.3 K/mm3 (0-0.3); Eosinophils Percent Auto 2.8 % (0-4.4); Hematocrit 33.1 % (37.0-47.0); Immature Granulocyte Absolute 0.03 K/mm3 (0.00-0.031); Immature Granulocyte Percent A 0.3 % (0-0.5); Lymphocytes Absolute Auto 2.31 K/mm3 (0.9-3.2); Lymphocytes Percent Auto 24.7 % (18.3-44.2); Mean Corpuscular HGB Conc 33.2 g/dl (32-36); Mean Corpuscular Hemoglobin 32.5 pg (26-34); Mean Corpuscular Volume 97.9 fl (80-100); Mean Platelet Volume 10.5 fl (7.4-10.4); Monocytes Absolute Auto 0.5 K/mm3 (0.1-0.6); Monocytes Percent Auto 4.8 % (2.6-8.5); Neutrophils Absolute Auto 6.3 K/mm3 (1.3-6.7); Neutrophils Percent Auto 67.1 % (45.5-73.1); Platelet Count Result 220 k/mm3 (150-375); Red Blood Count 3.38 M/mm3 (4.2-5.4); Red Cell Distribution Width 13.4 % (11.5-14.5); White Blood Count 9.4 K/mm3 (4.5-10.0)
[2024-02-02 19:21] LABS: Alanine Aminotransferase 18 U/L (6-35); Alkaline Phosphatase 70 U/L (38-126); Anion Gap 6 mmol/L (4-12); Aspartate Amino Transferase 31 U/L (14-36); Bilirubin,Total 0.2 mg/dL (0.2-1.3); Blood Urea Nitrogen 6 mg/dL (7-17); Calcium 9.1 mg/dL (8.4-10.2); Carbon Dioxide 23 mmol/L (22-30); Chloride 107 mmol/L (98-107); Estimated Glomerular Filt Rate > 60; Glucose 88 mg/dL (65-110); Potassium 3.6 mmol/L (3.4-5.0); Sodium 136 mmol/L (137-145)
--- NOTE | 2024-02-02 20:04 | PC.NURSE ---
Addendum entered by Savanah Rios RN 02/03/24 00:34: Reviewed labs with provider. Original Note: Called Eulalia Berumen CNM, update on pt, vital signs, headache, and medications.
--- NOTE | 2024-02-02 20:09 | ECG_ITS ---
Test Date: 2024-02-02 21:14:14 Measurements Intervals [place] Rate: 40 P: 47 UT: 152 QRS: 68 QRSD: 94 T: 58 QT: 418 QTc: 341 Interpretive Statements SINUS BRADYCARDIA ABNORMAL ECG No previous ECG available for comparison Electronically Signed On 02-03-2024 06:12:35 CDT by Archie Johnson D.O.
--- NOTE | 2024-02-02 20:09 | PC.NURSE ---
Eulalia Berumen CNM called, orders received to get an EKG and a hospitalist consult.
--- NOTE | 2024-02-02 20:22 | PC.NURSE ---
Spoke to Cheri Lind in regards to notifying Dr. Espinoza, hospitalist on a consult.
--- NOTE | 2024-02-02 21:14 | PC.NURSE ---
EKG done at bedside.
--- NOTE | 2024-02-02 21:17 | PC.NURSE ---
Dr. Espinoza, hospitalist reviewed EKG and asked pt to walk in the room with pulse oximeter on. Orders received to draw Magnesium and TSH labs.
--- NOTE | 2024-02-02 21:52 | PM.IMCN ---
Assessment and Plan Assessment and plan (1) MVP (mitral valve prolapse): Code(s): I34.1 - Nonrheumatic mitral (valve) prolapse Status: Acute (2) Headache: Code(s): R51.9 - Headache, unspecified Status: Acute (3) Sinus bradycardia: Code(s): R00.1 - Bradycardia, unspecified Status: Acute Plan Sinus bradycardia EKG shows no first-degree AV block. Monitor heart rate monitor blood pressure. Continue IV hydration. Patient heart rate goes up above in the 70s on ambulation. Patient has history of PVCs will have patient hold any beta rach HPI Date of Consult Consult date: 02/02/24 Requesting Physician: Ton Al MD Primary Care Provider: Amish Archibald, PANaomy Consult Narrative Narrative: Martha Miner is a 33 year old female who is 3 days was seen and evaluated because patient was noted to have a heart rate of 45. Patient on examination it appeared very comfortable has been on metoprolol which she has not taken since Wednesday. Typically she has had 1 more episode like this like a year ago for which her heart rate went down in the low 40s and she discontinue metoprolol for few days. Patient was started on metoprolol by her primary care physician for multiple PVCs. Patient denied chest pain or shortness of breath appears very comfortable no dizziness no passing out. Patient was asked to move around patient heart rate went up 71 patient has no chest discomfort at that time patient also had EKG done which shows sinus bradycardia with no first-degree AV block Review of Systems Review of Systems: All systems reviewed & are unremarkable except as noted in HPI and below [facility] Past Medical History Medical History Asthma Bipolar 1 disorder IUP (intrauterine ), incidental MVP (mitral valve prolapse) Viral syndrome Family History Family History Grandparent Hypertension Mother Hypertension Mother Kidney carcinoma Social History Social History Smoking status: Never smoker Substance use: never Do You Feel Safe in your Home?: Yes Lack of Transportation: No Lack of Food: Never True Current Housing: I Have Housing Concerned About Future Housing: No Difficulty Paying Gas/Electric Bills: No Difficulty Paying for Meds: No Currently Unemployed: No Education: Trade/Vocational Certificate Difficulty w/ Childcare or Family Care: No Spiritual care concerns: No Meds Home Medications and Allergies Home Medications Medication Instructions Recorded Confirmed Type levothyroxine 125 mcg tablet 125 mcg PO DAILY 11/10/21 01/22/24 History lorazepam 0.5 mg tablet 0.5 mg PO Q6H PRN Anxiety 11/10/21 01/30/24 History vits no.126-ferrous fum 1 tablet PO DAILY 01/17/24 01/22/24 History 28 mg iron-folic acid 800 mcg tablet (Classic ) acetaminophen 500 mg capsule 1,000 mg PO Q6H PRN Headache or 01/22/24 01/30/24 History pain calcium carbonate (Tums) 400 mg PO DAILY PRN Heartburn 01/22/24 01/30/24 History cholecalciferol (vitamin D3) 125 10,000 unit PO DAILY 01/22/24 01/30/24 History mcg (5,000 unit) tablet (Vitamin D3) metoprolol succinate 25 mg 25 mg PO DAILY 01/22/24 01/30/24 History tablet,extended release 24 hr omeprazole 20 mg capsule,delayed 20 mg PO BID PRN Reflux 01/22/24 01/30/24 History release potassium chloride 20 mEq 20 meq PO Q48H 01/22/24 01/30/24 History tablet,extended release(part/cryst) jxhinvocrw-flclxsjxpwozu-rjlmvdrw 1 cap PO Q6H PRN pain #10 caps 02/01/24 Rx 50 mg-300 mg-40 mg capsule (Fioricet) docusate sodium 100 mg capsule 100 mg PO BID PRN Constipation #60 02/01/24 Rx caps ibuprofen 600 mg tablet 600 mg PO Q6H PRN Cramping #30 tabs 02/01/24 Rx Allergies Allergy/AdvReac Type Severity Driscoll
[2024-02-02 22:28] LABS: Magnesium 1.8 mg/dL (1.6-2.3)
[2024-02-02] MEDS: IBUPROFEN 600 MG TABLET PO (23:00)
--- NOTE | 2024-02-02 23:46 | OBADM ---
This patient, Martha Miner, admitted to the OB room OB Post 115 for observation. Patient/family oriented to hospital policies and general routines including ID bracelet, bed and alarms, visiting hours, pain management, procedures, bathroom and other care routines, personal items, smoking policy, room service/diet, and visiting hours. Patient/Family are encouraged to report perceived risks to care and to ask questions if they do not understand what they are told or what they should do.
[2024-02-03] VITALS (63 sets, daily range): BP systolic 129–158; BP diastolic 55–81; PULSE 34–63; RESP 16–20; TEMP 36.5–37.4; O2SAT 95–100
--- NOTE | 2024-02-03 | ECHO_ITS ---
Patient Info Name: Martha Miner Age: 33 years : 1990 Gender: Female Ht: 70 in Wt: 294 lbs BSA: 2.63 m2 HR: 48 bpm BP: 134 / 68 mmHg Heart Rhythm: Sinus Rhythm Technical Quality: Fair Exam Date: 02/03/2024 3:19 PM Exam Location: Echo Lab Patient Status: Outpatient Admit Date: 02/02/2024 Staff Ordering Physician: Dar Stark MD Bilingual Teacher Assistant: Abimael Amador RDCS Attending Provider: Ton Al MD Referring Physician: Lincoln SEBASTIAN; Exam Type: CA echo doppler color flow Study Info Indications R00.1 - Bradycardia, unspecified Complete two-dimensional, color flow and Doppler transthoracic echocardiogram is performed. Summary 1. Complete two-dimensional, color flow and Doppler transthoracic echocardiogram is performed. 2. Normal 2D echocardiogram. 3. Doppler exam demonstrated trivial mitral regurgitation and mild pulmonic regurgitation, not clinically significant. Left Ventricle Left ventricular chamber dimension is normal. Left ventricular systolic function is normal, estimated at 60-65%. The left ventricular diastolic function is normal. Right Ventricle Right ventricular chamber dimension is normal. Left Atria Left atrial chamber dimension is normal. Right Atria Right atrial chamber dimension is normal. Aortic Valve The aortic valve is normal. Pulmonic Valve The pulmonic valve is normal. There is mild pulmonic regurgitation. Mitral Valve The mitral valve has normal leaflets. There is trace mitral valve regurgitation. Tricuspid Valve The tricuspid valve leaflets are normal. Pericardium/Pleural The pericardium appears normal. Aorta The aortic root size at the sinus of Valsalva is normal. Left Ventricular Outflow Tract Name Value Normal LVOT 2D LVOT Diameter 2.0 cm LVOT Doppler LVOT Peak Gradient 8 mmHg LVOT Mean Gradient 3 mmHg LVOT VTI 28 cm LVOT VTI/AV VTI Ratio 0.9 LVOT Stroke Volume 88 ml LVOT CO 3.6 l/min LVOT CI 1.4 l/min/m2 Pulmonic Valve Name Value Normal RVOT Doppler RVOT Peak Gradient 2 mmHg PV Doppler PV Peak Gradient 4 mmHg PV Regurgitation Doppler MS Peak End Diastolic Velocity 61 cm/s Mitral Valve Name Value Normal MV Doppler MV [place] 554 cm/s2 MV PHT
[2024-02-03] MEDS: ACETAMINOPHEN/BUTALBITAL/CAFFEINE 325-50-40 MG TABLET (FIORICET) 1 TAB PO ×3 (02:40→16:10)
--- NOTE | 2024-02-03 07:05 | PC.NURSE ---
Pulse oximeter left in place due to maternal bradycardia. Pt instructed to call if she should start feeling light headed, dizzy, nauseated, or short of breath. Pt verbalizes understanding. in room with infant.
[2024-02-03] MEDS: IBUPROFEN 600 MG TABLET PO ×3 (07:22→19:30)
--- NOTE | 2024-02-03 07:31 | PC.NURSE ---
Baby crying as this BP of 151/79 was taken
[2024-02-03] MEDS: WITCH HAZEL 40 PADS 1 PAD TOPICAL (07:40)
--- NOTE | 2024-02-03 08:04 | PC.NURSE ---
Dr. Al on unit and updated on pt's pulse, hasn't had a dose of Metoprolol since Wednesday evening, and still having a headache. Order received for cardiology consult.
--- NOTE | 2024-02-03 08:15 | PC.NURSE ---
Taryn at Dr. Green's office was notified of cardiology consult for bradycardia.
--- NOTE | 2024-02-03 08:26 | PM.IMPN ---
Progress Note: A&P Assessment and Plan (1) Sinus bradycardia: Code(s): R00.1 - Bradycardia, unspecified Status: Acute Assessment and Plan: Reports low heart rate at home. She normally is on metoprolol succinate 25 mg daily for PVC. Last dose was Wednesday, 01/30. She reports a similar episode to this in the past where her heart rate was in the 40's and she was told to hold her metoprolol or skip a day in between if she was concerned. She normally holds the dose if her heart rate is less than 65 bpm per her preference. BP 129/64, heart rate 43 Asymptomatic bradycardia EKG shows sinus bradycardia rate of 40 Cardiology was consulted, recs appreciated Holding metoprolol--recommend PCP, cardiology follow Cards has requested a 2D Echo TSH was normal, T4 pending (2) Headache: Code(s): R51.9 - Headache, unspecified Status: Acute Assessment and Plan: S/P epidural and blood patch. Heat and ibuprofen for pain control (3) MVP (mitral valve prolapse): Code(s): I34.1 - Nonrheumatic mitral (valve) prolapse Status: Acute Plan Awaiting ECHO results, T4 pending. Likely discharge later today, if not then tomorrow. Subjective Date/time seen: 02/03/24 08:26 Interval history: Martha Miner is a 33 year old female who is 4 days was seen and evaluated because patient was noted to have a heart rate of 45. 02/02: Patient is seen resting in bed in no acute distress. She reports she came to the hospital because she checked her blood pressure and he was found to be 130s over 60s in her heart rate was in the 40s. She was also having a headache. She called her OB who recommended she come to the hospital for evaluation. She is day 4 after a successful vaginal delivery with epidural. She did have a persistent headache requiring blood patch. She has a headache but is improved with pain medication and heat. For her vaginal bleeding she reports approximately 3 pad changes a day. She denies dizziness, chest pain, and shortness of breath. She follows with a proof operator in [facility] for PVC's. Her last ECHO was 10/2022 which was normal with EF 60-65%. Cardiology is consulted here. Review of Systems Review of Systems: All systems reviewed & are unremarkable except as noted in HPI and below Exam Narrative: General: well appearing, appears stated age. HEENT: normocephalic, atraumatic. Mucous membranes moist. EOMI, PERRLA, bilateral sclera anicteric, no conjunctival injection. Neck supple without JVD, lymphadenopathy, or bruit. Respiratory: clear to auscultation bilaterally. No rales/rhonic/wheezes. Cardiovascular: Bradycardic and regular rhythm, normal S1-S2 upon auscultation. No murmurs, rubs, or clicks. PMI is nondisplaced, capillary refill less than 3 second. Abdomen: Soft, round, no pulsatile masses, nondistended and nontender. No rebound, no guarding. No CVA tenderness, no hepatosplenomegaly. Bowel sounds present to all four quadrants. No high pitch or tinkling sounds, resonant to percussion. Extremities: No cyanosis, clubbing, or edema present. Pulses are palpable 2/2. Active ROM to all four extremities. Neuro: Alert and orientated x 4. PERRLA. Cranial nerves 2-12 intact without focal deficit. Skin: Warm, dry, and intact, without rash, erythema, or lesion. Lines: Incisions: Psych: pleasant, cooperative, normal speech, normal affect, no hallucinations, no dysarthria Objective Data Vital Signs Vital Signs: Vital Signs - 24 hr 02/02/24 19:06 02/02/24 19:11 02/02/24 19:16 Temperature Pulse Rate 49 L Respiratory Rate Blood Pressure 133/67 Blood Pressure [Right Arm] Pulse Oximetry 98 99 98 Oxygen Delivery 02/02/24 19:21 02/02/24 19:26 02/02/24 19:30 Temperature Pulse Rate 45 L Respiratory Rate Blood Pressure 135/74 Blood Pressure [Right Arm] Pulse Oximetry 99 97 Oxygen Delivery 02/02/24 19:31 02/02/24
--- NOTE | 2024-02-03 08:45 | PC.NURSE ---
No improvement in headache when pt lays flat.
--- NOTE | 2024-02-03 09:20 | PC.NURSE ---
Pt given heating pad for back of neck and head to see if that helps with headache. Encouraged to sleep when baby is sleeping as she didn't get much sleep last night and no stretches of sleep longer than 40 mins.
--- NOTE | 2024-02-03 10:36 | PC.NURSE ---
Sarah Gomez RN with the hospitalist in to see and assess pt.
--- NOTE | 2024-02-03 11:20 | PC.NURSE ---
Dr. Stark in to see and assess pt. Plans to order echo.
--- NOTE | 2024-02-03 11:31 | PM.IMHP ---
H&P: HPI History of Present Illness Date/Time: 02/03/24 11:31 Chief Complaint: Slow heart rate Narrative: this patient is a 33-year-old female who is 1 week who presents for slow her rate. She has never noticed bradycardia before. She takes her pulse at home at about 40. Her blood pressure at home was normal. She was asked to come in to be evaluated. She was evaluated in labor and delivery. The medicine team was asked to see her. They saw her and round labs and provoked increased heart rate with certain maneuvers. She remained bradycardic. Though stable. She denied any syncope. She denies any nausea, vomiting, fever, chills. She denies any chest pain or shortness of breath. Today we agreed to a cardiology consult. Cardiology will be contacted in the we will look for direction on her care from the cardiology team. Spent over 30 minutes with the patient and on her care in total. Discussed concerns and her care in detail. Answered her questions. Discussed diagnostic possibilities including a normal sinus rate. Review of Systems Review of Systems: All systems reviewed & are unremarkable except as noted in HPI and below Constitutional: Constitutional: Denies chills, Denies fatigue, Denies fever(s) and Denies weakness Eyes: Eyes: Denies blurry vision, Denies change in vision, Denies loss of peripheral vision, Denies loss of vision, Denies other visual disturbances and Denies eye pain ENT: Denies vertigo, Denies dizziness, Denies hearing loss, Denies mouth pain, Denies nasal obstruction, Denies neck mass and Denies neck pain Cardiovascular: Cardiovascular: Denies chest pain, Denies diaphoresis, Denies syncope, Denies leg edema and Denies dyspnea Respiratory: Respiratory: Denies chest congestion, Denies cough, Denies hemoptysis, Denies dyspnea and Denies wheezing Gastrointestinal: Gastrointestinal: Denies abdominal pain, Denies constipation, Denies diarrhea, Denies nausea and Denies vomiting Genitourinary: Genitourinary: Denies hematuria, Denies change in libido, Denies nocturia, Denies genital lesions, Denies flank pain and Denies urinary urgency Musculoskeletal: Musculoskeletal: Denies abnormal gait, Denies back pain, Denies myalgias, Denies arthralgias, Denies joint swelling, Denies muscle weakness and Denies neck pain Integumentary/Breasts: Skin/Breast: Denies swelling, Denies breast pain, Denies breast mass, Denies dry skin, Denies nipple discharge, Denies unusual bruising and Denies jaundice Neurologic: Denies Neuro-related abnormal movements, Denies Abnormal speech present, Denies abnormal gait, Denies behavioral changes, Denies confusion, Denies vertigo, Denies dizziness, Denies syncope, Denies loss of vision, Denies memory loss, Denies convulsions and Denies weakness Psychiatric: Psychiatric: Denies abnormal sleep pattern, Denies behavioral changes, Denies change in libido, Denies confusion, Denies depression, Denies anhedonia and Denies memory loss Endocrine: Endocrine: Reports no additional endocrine complaints, Denies change in libido and Denies fatigue Hematologic/Lymphatic: Hematologic/Lymphatic: Reports no additional hematologic/lymphatic complaints Allergic/Immunologic: Allergic/Immunologic: Reports no additional allergic/immunologic complaints and Denies wheezing PMFSH Past Medical History Medical History Asthma Bipolar 1 disorder IUP (intrauterine ), incidental MVP (mitral valve prolapse) Viral syndrome Family History Family History Grandparent Hypertension Mother Hypertension Mother Kidney carcinoma Social History Social History Smoking status: Never smoker Substance use: never Do You Feel Safe in your Home?: Yes Lack of Transportation: No Lack of Food: Never True Current Housing: I Have Housing Concerned About
[2024-02-03] MEDS: LEVOTHYROXINE SODIUM 125 MCG TABLET PO (11:33)
--- NOTE | 2024-02-03 11:39 | PM.CNCAR ---
Assessment and Plan Assessment and plan (1) Asymptomatic bradycardia: Code(s): R00.1 - Bradycardia, unspecified Status: Acute Assessment and Plan: Asymptomatic although she does have marked sinus bradycardia. She does have a history of baseline bradycardia with heart rates usually in the 50s and at night will drop into the 40s. Post discharge, she has not been as active as typical and suspected her lower heart rate is simply functionally related to a decrease in her usual activity. I would continue to hold her metoprolol for now. Will check a 2D echocardiogram with Doppler especially given her peripartum state and bradycardia. Free T4 level will be checked. If workup is unremarkable, follow-up as an outpatient with her primary receiving and processing supervisor (2) state: Code(s): Z39.2 - Encounter for routine follow-up Status: Acute (3) MVP (mitral valve prolapse): Code(s): I34.1 - Nonrheumatic mitral (valve) prolapse Status: Acute Assessment and Plan: No mention of MVP on most recent echocardiogram performed in 2022 (4) Hypothyroidism: Code(s): E03.9 - Hypothyroidism, unspecified Status: Acute Assessment and Plan: On levothyroxine. Continue. Will check a free T4 level (5) Hypokalemia: Code(s): E87.6 - Hypokalemia Status: Acute Assessment and Plan: She has low normal potassium and history of ventricular ectopy. Will replace her potassium with 40 mEq p.o. x1 History of Present Illness History of Present Illness Consult date/time: 02/03/24 11:39 Requesting physician: Ton Al MD Consult reason: Other (Bradycardia) Reason For Visit: Bradycardia Narrative: Reason for consultation: Bradycardia Date of service 02/03/2024 Requesting provider: Dr. Al History patient is a 33-year-old female who does follow with Cardiology at [facility] due to a history of what sounds to be symptomatic PVCs. These have been controlled with electrolyte supplementation and metoprolol. She delivered her 6th child 4 days ago. She has been doing with an epidural leak and is having some headaches. She called yesterday because of her blood pressure was a bit elevated for her 138/78 her heart rate was in the 40s. Because of her headache and other symptoms she was told to come back to the hospital further workup and evaluation. She states that back in 2017 she was prescribed metoprolol for palpitations but she did not take it much if at all at that time. Then in 2021 she was having palpitations again and wore a heart monitor and she had a ventricular bigeminy and ventricular trigeminy. It sounds as if she had 9% ectopic burden. Potassium also was low normal as was her magnesium and she started to replace those. She was prescribed metoprolol which did seem to help her palpitations but began feeling tired and noticed that her heart rate was in the 40s. Her or receiving and processing supervisor at that time told her to monitor her heart rate and if her heart rate was lower she was symptomatic to not take her metoprolol. She is diligent about wearing her Apple watch in she states that usually her heart rate is in the 50s. At night it would drop into the 40s. This is her usual david. She did take a dose of metoprolol 5 days ago prior to being admitted and delivering. 3 days ago while in the hospital she was given 1 dose of metoprolol because her heart rate was in the 60s and she became concerned that she may have recurrence of her PVCs or rebound tachycardia. She was discharged on Wednesday which is 2 days ago. At home heart rates have been generally in the 40s but she admits that her activity level as been much less than typical due to her epidural leak as she was told to essentially lay flat and do very little. She otherwise denies any syncope, presyncope, dizziness, unusual edema, shortness of breath, chest pain, paroxysmal nocturnal dyspnea or orthopnea. Some occasional hard/
[2024-02-03] MEDS: POTASSIUM CHLORIDE 20 MEQ ER TABLET 40 MEQ PO (13:19)
[2024-02-03] MEDS: DOCUSATE SODIUM 100 MG CAPSULE PO (13:20)
[2024-02-03] MEDS: MULTIVIT/MIN/PREN/FOL AC/IRON TABLET 1 TAB PO (13:38)
[2024-02-03] MEDS: CHOLECALCIFEROL 5,000 UNITS TABLET 10000 UNITS PO (13:53)
--- NOTE | 2024-02-03 18:42 | PC.NURSE ---
1841: Dr. Stark called and consulted on patients lab work and echo results. Report given of T4 results of 14.8 and reported that the echo report was still not read and released for results. okay with discharge home as long as patient is not symptomatic. She can follow up as an outpatient.
--- NOTE | 2024-02-03 18:56 | PC.NURSE ---
185: Hospitalist Dr. Andrade called and report given on patient. Report given that Dr. Stark gave discharge orders for home. Dr. Andrade also approved discharge.
--- NOTE | 2024-02-03 19:53 | PC.NURSE ---
1914: Dr. Al called and report given. Reported that cardiology evaluated patient and discharged home. Dr. Al also comfortable to send home for discharge. Dr. Al instructed to have patient call him on the after hours line to have Fioricet refilled.
--- NOTE | 2024-03-05 21:27 | PM.DS ---
DS: Admitting Diagnosis Discharge Date 02/03/24 Admitting Diagnosis February 02, 2024 DS: Discharge Diagnosis Discharge Diagnosis (1) Asymptomatic bradycardia: Code(s): R00.1 - Bradycardia, unspecified Status: Acute DS: Summary Hospital Course Hospital Course: 34-year-old female gravid, who presented to the office with a slow heart rate. She was sent to labor and delivery. She was sent to labor and delivery for monitoring the baby and for Cardiology consult while she was in the hospital. She was admitted for about 24 hours. Cardiology consult was obtained. She was discharged Time Spent with Patient Time attestation: Total time spent providing and/or coordinating discharge services: Discharge Plan Discharge Attending physician on discharge: Ton Al Consulting providers: Sarah Gomez; Francisco Espinoza; Dar Stark; Archie Johnson; Sruthi Green Discharging Clinician: Ton Al Anticipated Discharge Date/Time: 02/03/24 20:00 Patient Disposition: Home, Self-Care Activity: as tolerated Diet: as tolerated Discharge Instructions: Education: Mom and Baby Guide Given to: Follow-Up: as needed with OB. Schedule PP appointment. BREAST CARE: * Wear a snug supportive bra. * For engorgement discomfort: Breast Feeding: * Apply warm moist washcloths * Express milk as needed to relieve engorgement * Wear loose clothing Bottle Feeding: * May apply ice packs * For sore nipples: * Identify correct latch-on * Apply warm moist washcloths before and after nursing * Air dry nipples after nursing * May apply Lansinoh cream to nipple. EPISIOTOMY/PERINEAL CARE: * Until bleeding stops, use your whitney bottle after urinating * Change your pad frequently throughout the day * You may take sitz baths several times a day (fill your bathtub with warm water and soak for 20 minutes.) Do NOT bathe in the water * No tub baths until seen by your physician - You may shower ACTIVITY: * Rest as much as possible. * Do not exercise or lift anything heavier than your baby (such as laundry or other children.) * Avoid stairs or driving as much as possible. * Do not put anything into the vagina. No douching, tampons, or sexual activity until seen by physician. NOTIFY PHYSICIAN IF YOU HAVE ANY QUESTIONS OR IF ANY OF THE FOLLOWING SYMPTOMS OCCUR: * If your episiotomy or incision becomes red, swollen, or more painful than what you have experienced in the hospital. * If your vaginal bleeding becomes foul smelling. * If your vaginal bleeding becomes more heavy than a period or if your bleeding changes from pink to bright red. However, you may pass an occasional walnut-sized clot once or twice for the first week . * If you experience a sharp, shooting pain in you calves. * If you discover a hard, reddened area on your breast or if you experience flu-like symptoms. DIET: * Eat regular, well-balanced meals. * Drink plenty of fluids daily. If , drink to thirst Medications: Ibuprofen 600 mg every 6 hours: last taken at 7:30 pm. Next dose at 1:30am. Fioricet 1 tab every 6 hours: last taken at 4:10pm. Next dose at 10:10 pm. Tylenol 500 mg every 6 hours: Take with next dose of Fioricet and with each consecutive dose if needed. Stand Alone Forms: General Discharge Information Follow-up/Referrals: Ton Al MD [Physician] - Discharge Medications: Continued lorazepam 0.5 mg tablet 0.5 mg PO Q6H PRN (Reason: Anxiety) levothyroxine 125 mcg tablet 125 mcg PO DAILY Classic 28 mg iron- 800 mcg Tablet 1 tablet PO DAILY docusate sodium 100 mg Capsule 100 mg PO BID PRN (Reason: Constipation) Qty: 60 0RF ibuprofen 600 mg Tablet 600 mg PO Q6H PRN (Reason: Cramping) Qty: 30 0RF cholecalciferol (vitamin D3) [Vitamin D3] 125 mcg (5,000
--- NOTE | 2024-03-05 21:44 | P.PNOB_ITS ---
OB - Triage/Final Diagnosis Visit Information Comments/Additional reasons for admission: I have assessed the risk for this patient, Martha Miner, and determined that she would benefit from observation care. Evaluation Laboratory results: Laboratory Tests 02/02/24 02/02/24 02/03/24 18:45 22:05 13:39 WBC 9.4 RBC 3.38 L Hgb 11.0 L Hct 33.1 L MCV 97.9 MCH 32.5 MCHC 33.2 RDW 13.4 Plt Count 220 MPV 10.5 H Immature Gran % (Auto) 0.3 Neut % (Auto) 67.1 Lymph % (Auto) 24.7 [place] % (Auto) 4.8 Eos % (Auto) 2.8 Baso % (Auto) 0.3 Lymph # (Auto) 2.31 [place] # (Auto) 0.5 Eos # (Auto) 0.3 Baso # (Auto) 0.0 Abs Immat Gran (auto) 0.03 Absolute Neuts (auto) 6.3 Absolute Nucleated RBC 0.000 Nucleated RBC % 0.0 Sodium 136 L Potassium 3.6 Chloride 107 Carbon Dioxide 23 Anion Gap 6 BUN 6 L Creatinine 0.60 L Estim Creat Clear Calc Not Reportable Estimated GFR > 60 Glucose 88 Calcium 9.1 Magnesium 1.8 Total Bilirubin 0.2 AST 31 ALT 18 Alkaline Phosphatase 70 Total Protein 6.0 L Albumin 3.0 L TSH (Reflex) 3.570 Thyroxine (T4) 14.80 H Final Diagnosis (1) Preeclampsia in period: Code(s): O14.95 - Unspecified pre-eclampsia, complicating the puerperium Status: Acute
== END 2024-02-03 20:05 ==
LOC: ANHOBOP 22:25 → ANHOBPP 22:25
PROVIDERS: Advanced Practice Midwife; Internal Medicine; Internal Medicine Cardiovascular Disease; Admitting Provider Obstetrics & Gynecology; PCP Physician Assistant; Visit Provider Obstetrics & Gynecology
DX: R00.1 Bradycardia, unspecified (principal); O99.893 Other specified diseases and conditions complicating puerperium; I34.1 Nonrheumatic mitral (valve) prolapse; J45.909 Unspecified asthma, uncomplicated; F31.9 Bipolar disorder, unspecified; E03.9 Hypothyroidism, unspecified; E87.6 Hypokalemia
CPT/HCPCS: 36415; 80053; 83735; 84436; 84443; 85025; 93005; 93306; A9270; G0378; G0379

== ENCOUNTER 2024-02-05 15:45 | Observation (INO) | payer OTHER, SELFPAY ==
[2024-02-05] VITALS (113 sets, daily range): BP systolic 131–169; BP diastolic 55–87; PULSE 42–80; RESP 16–18; TEMP 36.9–38.1; O2SAT 93–100; BMI 41.7
[2024-02-05 16:34] LABS: Basophils Absolute Auto 0.1 K/mm3 (0.0-0.1); Basophils Percent Auto 0.5 % (0.2-1.2); Eosinophils Absolute Auto 0.2 K/mm3 (0-0.3); Eosinophils Percent Auto 1.6 % (0-4.4); Hematocrit 35.6 % (37.0-47.0); Hemoglobin 12.4 g/dL (12.0-15.0); Immature Granulocyte Absolute 0.06 K/mm3 (0.00-0.031); Immature Granulocyte Percent A 0.6 % (0-0.5); Lymphocytes Absolute Auto 1.87 K/mm3 (0.9-3.2); Lymphocytes Percent Auto 18.1 % (18.3-44.2); Mean Corpuscular HGB Conc 34.8 g/dl (32-36); Mean Corpuscular Hemoglobin 33.3 pg (26-34); Mean Corpuscular Volume 95.7 fl (80-100); Mean Platelet Volume 10.2 fl (7.4-10.4); Monocytes Absolute Auto 0.4 K/mm3 (0.1-0.6); Neutrophils Absolute Auto 7.8 K/mm3 (1.3-6.7); Neutrophils Percent Auto 75.2 % (45.5-73.1); Platelet Count Result 278 k/mm3 (150-375); Red Blood Count 3.72 M/mm3 (4.2-5.4); Red Cell Distribution Width 12.9 % (11.5-14.5); White Blood Count 10.3 K/mm3 (4.5-10.0)
[2024-02-05 16:42] LABS: Alanine Aminotransferase 36 U/L (6-35); Albumin Level 3.7 g/dL (3.5-5.1); Alkaline Phosphatase 84 U/L (38-126); Anion Gap 7 mmol/L (4-12); Aspartate Amino Transferase 25 U/L (14-36); Bilirubin,Total 0.4 mg/dL (0.2-1.3); Blood Urea Nitrogen 9 mg/dL (7-17); Calcium 8.8 mg/dL (8.4-10.2); Carbon Dioxide 23 mmol/L (22-30); Chloride 109 mmol/L (98-107); Estimated Glomerular Filt Rate > 60; Glucose 90 mg/dL (65-110); Potassium 3.7 mmol/L (3.4-5.0); Sodium 139 mmol/L (137-145); Uric Acid 3.9 mg/dL (2.5-7.5)
[2024-02-05] MEDS: ACETAMINOPHEN/BUTALBITAL/CAFFEINE 325-50-40 MG TABLET (FIORICET) 1 TAB PO ×2 (16:43→22:48)
[2024-02-05] MEDS: ACETAMINOPHEN 500 MG TABLET PO (16:44)
[2024-02-05] MEDS: NIFEdipine 10 MG CAPSULE PO (17:23)
--- NOTE | 2024-02-05 17:30 | PC.NURSE ---
1703--Reported labs and pt condition to Dr. Al. Order given for Procardia 10mg.
--- NOTE | 2024-02-05 17:34 | PC.NURSE ---
1730--Pt eating dinner, reports feeling a bit better.
--- NOTE | 2024-02-05 17:38 | PC.NURSE ---
1605--Pt c/o high BP at home and low HR; minimal swelling in feet and legs, denies dizziness, blurred vision or upper quadrant pain. Slight headache 2/10 pain.
[2024-02-05] MEDS: DEXTROSE 5%/LACTATED RINGERS 1,000 ML 100 ML IV CONT (19:47)
[2024-02-05] MEDS: KETOROLAC 30 MG/ML VIAL (*BKC) IV PUSH (19:51)
--- NOTE | 2024-02-05 20:44 | PC.NURSE ---
Spoke with Dr Al over the phone regarding patient having 2 severe pressures within 15 minutes. Orders received to start patient on Magnesium Sulfate 4g bolus followed by 2g maintenance dose for 24 hours.
[2024-02-05] MEDS: LACTATED RINGERS 1,000 ML 75 ML IV CONT (21:15)
[2024-02-05] MEDS: MAGNESIUM SULF 4 GM/WATER100ML 4 GM/100 ML BAG IVPB (21:15)
[2024-02-05] MEDS: MAGNESIUM SULF 20GM/WATER500ML 500 ML 50 MG IV CONT (21:50)
[2024-02-06] VITALS (166 sets, daily range): BP systolic 125–163; BP diastolic 62–98; PULSE 41–103; RESP 12–18; TEMP 36.6–37.2; O2SAT 93–100
[2024-02-06] MEDS: ACETAMINOPHEN/BUTALBITAL/CAFFEINE 325-50-40 MG TABLET (FIORICET) 1 TAB PO ×2 (03:12→06:50)
--- NOTE | 2024-02-06 07:38 | PC.NURSE ---
0630--Pt reports headache 03/04. Too early for medication, ice bag given.
[2024-02-06] MEDS: MAGNESIUM SULF 20GM/WATER500ML 500 ML 50 MG IV CONT (07:47)
[2024-02-06] MEDS: WITCH HAZEL 40 PADS 1 PAD (08:02)
--- NOTE | 2024-02-06 09:58 | PC.NURSE ---
0956--Dr. Al at bedside. Plan of care discussed.
--- NOTE | 2024-02-06 10:02 | PM.IMHP ---
H&P: HPI History of Present Illness Date/Time: 02/06/24 10:02 Chief Complaint: Elevated blood pressures Narrative: 33-year-old female who is 1 week from a vaginal . She has been troubled with bradycardia, she had a cardiac evaluation. Echo was normal, EKG is sinus bradycardia, no treatment thus far for the bradycardia. She has developed elevated blood pressures into the severe range since that evaluation. She was admitted for observation into Labor and delivery. She was put on magnesium sulfate after period of observation. Initially her blood pressures were reasonably good but elevated. Later in the day she had severe range pressures and magnesium sulfate was started. Going to continue that for 18 hours. We are going to discontinue magnesium sulfate at that time. We will observe her and possibly administer blood pressure medications in get her stable hopefully for the end of the day. If not we will continue to watch her overnight and work on getting some antihypertensives doses that are affective. Review of Systems Review of Systems: All systems reviewed & are unremarkable except as noted in HPI and below Constitutional: Constitutional: Denies chills, Denies fatigue, Denies fever(s) and Denies weakness Eyes: Eyes: Denies blurry vision, Denies change in vision, Denies loss of peripheral vision, Denies loss of vision, Denies other visual disturbances and Denies eye pain ENT: Denies vertigo, Denies dizziness, Denies hearing loss, Denies mouth pain, Denies nasal obstruction, Denies neck mass and Denies neck pain Cardiovascular: Cardiovascular: Denies chest pain, Denies diaphoresis, Denies syncope, Denies leg edema and Denies dyspnea Respiratory: Respiratory: Denies chest congestion, Denies cough, Denies hemoptysis, Denies dyspnea and Denies wheezing Gastrointestinal: Gastrointestinal: Denies abdominal pain, Denies constipation, Denies diarrhea, Denies nausea and Denies vomiting Genitourinary: Genitourinary: Denies hematuria, Denies change in libido, Denies nocturia, Denies genital lesions, Denies flank pain and Denies urinary urgency Musculoskeletal: Musculoskeletal: Denies abnormal gait, Denies back pain, Denies myalgias, Denies arthralgias, Denies joint swelling, Denies muscle weakness and Denies neck pain Integumentary/Breasts: Skin/Breast: Denies swelling, Denies breast pain, Denies breast mass, Denies dry skin, Denies nipple discharge, Denies unusual bruising and Denies jaundice Neurologic: Denies Neuro-related abnormal movements, Denies Abnormal speech present, Denies abnormal gait, Denies behavioral changes, Denies confusion, Denies vertigo, Denies dizziness, Denies syncope, Denies loss of vision, Denies memory loss, Denies convulsions and Denies weakness Psychiatric: Psychiatric: Denies abnormal sleep pattern, Denies behavioral changes, Denies change in libido, Denies confusion, Denies depression, Denies anhedonia and Denies memory loss Endocrine: Endocrine: Reports no additional endocrine complaints, Denies change in libido and Denies fatigue Hematologic/Lymphatic: Hematologic/Lymphatic: Reports no additional hematologic/lymphatic complaints Allergic/Immunologic: Allergic/Immunologic: Reports no additional allergic/immunologic complaints and Denies wheezing PMFSH Past Medical History Medical History (Updated 02/06/24 @ 10:09 by Ton Al MD) Asthma Bipolar 1 disorder Hypothyroidism IUP (intrauterine ), incidental MVP (mitral valve prolapse) Viral syndrome Family History Family History Grandparent Hypertension Mother Hypertension Mother Kidney carcinoma Social History Social History Smoking status: Never smoker Substance use: never Do You Feel Safe in your Home?: Yes Lack of Transportation: No Lack of Food: Never True Current Housing: I Have H
--- NOTE | 2024-02-06 15:30 | PC.NURSE ---
1505--Magnesium sulfate discontinued. Reports headache pain minimal. Offers no complaints.
[2024-02-06] MEDS: NIFEdipine 30 MG TAB.ER.24 PO (18:49)
[2024-02-06] MEDS: ACETAMINOPHEN 500 MG TABLET PO (19:44)
[2024-02-07] VITALS (9 sets, daily range): BP systolic 126–147; BP diastolic 70–91; PULSE 46–61
[2024-02-07] MEDS: LEVOTHYROXINE SODIUM 125 MCG TABLET PO (06:58)
--- NOTE | 2024-03-06 10:30 | PM.OBTRLD ---
OB - Triage/Final Diagnosis Visit Information Comments/Additional reasons for admission: I have assessed the risk for this patient, Martha Miner, and determined that she would benefit from observation care. Evaluation Laboratory results: Laboratory Tests 02/05/24 16:16 WBC 10.3 H RBC 3.72 L Hgb 12.4 Hct 35.6 L MCV 95.7 MCH 33.3 MCHC 34.8 RDW 12.9 Plt Count 278 MPV 10.2 Immature Gran % (Auto) 0.6 H Neut % (Auto) 75.2 H Lymph % (Auto) 18.1 L [place] % (Auto) 4.0 Eos % (Auto) 1.6 Baso % (Auto) 0.5 Lymph # (Auto) 1.87 [place] # (Auto) 0.4 Eos # (Auto) 0.2 Baso # (Auto) 0.1 Abs Immat Gran (auto) 0.06 H Absolute Neuts (auto) 7.8 H Absolute Nucleated RBC 0.000 Nucleated RBC % 0.0 Sodium 139 Potassium 3.7 Chloride 109 H Carbon Dioxide 23 Anion Gap 7 BUN 9 Creatinine 0.70 Estim Creat Clear Calc Not Reportable Estimated GFR > 60 Glucose 90 Uric Acid 3.9 Calcium 8.8 Total Bilirubin 0.4 AST 25 ALT 36 H Alkaline Phosphatase 84 Total Protein 7.0 Albumin 3.7 Final Diagnosis (1) Preeclampsia in period: Code(s): O14.95 - Unspecified pre-eclampsia, complicating the puerperium Status: Acute
== END 2024-02-07 08:55 | disposition home or self-care (01) ==
LOC: ANHOBOP 15:47 → ANHOBPP 15:49 → ANHOBOP 20:54 → ANHOBPP 20:54
PROVIDERS: Admitting Provider Obstetrics & Gynecology; PCP Physician Assistant; Visit Provider Obstetrics & Gynecology
DX: O14.95 Unspecified pre-eclampsia, complicating the puerperium (principal)
CPT/HCPCS: 36415; 80053; 84550; 85025; 96365; 96366; 96375; A9270; G0378; G0379; J1885; J3475; J7120; J7121